=== PATIENT | female | born 1995 | race American Indian/Alaskan Native ===

== ENCOUNTER 2021-07-24 15:58 | Emergency (ER) | payer MEDICAID ==
[2021-07-24 16:40] LABS: Bilirubin,Urine NEG (Negative); Blood,Urine LG (Negative); Color,Urine Yellow (Yellow); Mucus,Urine 3+ /HPF; Protein,Urine <15 mg/dL mg/dL (Negative)
[2021-07-24 16:41] LABS: HCG Qualitative,Urine Positive (Negative)
[2021-07-24 16:52] LABS: Basophils # (Auto) 0.1 K/mm3 (0.0-0.1); Basophils % (Auto) 1.2 % (0.0-1.8); Eosinophils # (Auto) 0.1 K/mm3 (0.0-0.4); Eosinophils % (Auto) 1.7 % (0.0-4.3); Hematocrit 37.2 % (30.3-42.9); Hemoglobin 12.5 gm/dl (10.1-14.3); Lymphocytes # (Auto) 2.6 K/mm3 (1.2-5.4); Lymphocytes % (Auto) 47.5 % (13.4-35.0); Mean Corpuscular HGB Conc 34 % (30-34); Mean Corpuscular Volume 97 fl (79-97); Monocytes # (Auto) 0.5 K/mm3 (0.0-0.8); Monocytes % (Auto) 8.9 % (0.0-7.3); Platelet Count 316 K/mm3 (140-440); Red Blood Count 3.82 M/mm3 (3.65-5.03); Red Cell Distribution Width 14.2 % (13.2-15.2)
[2021-07-24 17:02] LABS: INR 0.88 (0.87-1.13)
[2021-07-24 17:03] LABS: Partial Thromboplastin Time 26.4 Sec. (24.2-36.6)
--- NOTE | 2021-07-24 17:32 | Emergency Department Report ---
ED HPI - General Chief complaint: Vaginal Bleeding Stated complaint: 5 WKS BLEEDING Time Seen by Provider: 07/24/21 16:30 Source: patient Mode of arrival: Ambulatory Limitations: No Limitations - History of Present Illness Initial comments: This is a 25-year-old female nontoxic, well nourished in appearance, no acute signs of distress presents to the ED with c/o of vaginal bleeding x4 days. Patient stated yesterday she noticed some bleeding 4 days ago and now is just stopping. Patient denies any abdominal or pelvic pain. Patient denies any vaginal discharge or foul odor. Patient denies any nausea, vomiting, chest pain, shortness of breathe, fever, chills, headache, stiff neck, numbness, tingling. Patient denies any urinary symptoms. Patient denies any allergies or PMH. Stated is about 5 weeks . MD Complaint: vaginal bleeding -: days(s) Severity scale (0 -10): 0 Improves with: none Worsens with: none Associated symptoms: vaginal bleeding. denies: nausea/vomiting, vaginal discharge, abdominal pain, dysuria, headache, vision changes, malaise, dysparuenia, rash, seizure, shortness of breath, syncope, weakness Vaginal bleeding: light :: Yes Pre-adriane care: followed by OB - Related Data Allergies Allergy/AdvReac Type Severity Reaction Status Date / Time flu Allergy Swelling Uncoded 07/24/21 16:11 ED Review of Systems ROS: Stated complaint: 5 WKS BLEEDING Other details as noted in HPI Comment: All other systems reviewed and negative Constitutional: denies: chills, fever Eyes: denies: eye pain, eye discharge, vision change ENT: denies: ear pain, throat pain Respiratory: denies: cough, shortness of breath, wheezing Cardiovascular: denies: chest pain, palpitations Endocrine: no symptoms reported Gastrointestinal: denies: abdominal pain, nausea, diarrhea Genitourinary: abnormal menses. denies: urgency, dysuria, frequency, hematuria, discharge, dyspareunia Musculoskeletal: denies: back pain, joint swelling, arthralgia Skin: denies: rash, lesions Neurological: denies: headache, weakness, paresthesias Psychiatric: denies: anxiety, depression Hematological/Lymphatic: denies: easy bleeding, easy bruising ED Physical Exam - General Limitations: No Limitations General appearance: alert, in no apparent distress - Head Head exam: Present: atraumatic, normocephalic - Eye Eye exam: Present: normal appearance - Neck Neck exam: Present: normal inspection, full ROM. Absent: lymphadenopathy - Respiratory Respiratory exam: Present: normal lung sounds bilaterally. Absent: respiratory distress, wheezes, rales, rhonchi, stridor, chest wall tenderness, accessory muscle use, decreased breath sounds, prolonged expiratory - Cardiovascular Cardiovascular Exam: Present: regular rate, normal rhythm, normal heart sounds. Absent: bradycardia, tachycardia, irregular rhythm, systolic murmur, diastolic murmur, rubs, gallop - GI/Abdominal GI/Abdominal exam: Present: soft, normal bowel sounds. Absent: distended, tenderness, guarding, rebound, rigid, diminished bowel sounds - Extremities Exam Extremities exam: Present: full ROM - Back Exam Back exam: Present: normal inspection, full ROM. Absent: tenderness, CVA tender ness (R), CVA tenderness (L), muscle spasm, paraspinal tenderness, vertebral tenderness, rash noted - Neurological Exam Neurological exam: Present: alert, oriented X3, normal gait - Psychiatric Psychiatric exam: Present: normal affect, normal mood - Skin Skin exam: Present: warm, dry, intact, normal color. Absent: rash ED Course Vital Signs 07/24/21 16:14 Temperature 98.2 F Pulse Rate 80 Respiratory 18 Rate Blood Pressure 138/80 [Right] O2 Sat by Pulse 100 Oximetry - Reevaluation(s) Reevaluation #1: 07/24/21 17:39 Patient is speaking in full sentences with no signs of distress noted. ED Medical Decision Making - Lab Data Result diagrams: 07/24/21 16:38 Lab Results 07/24/21 07/24/21 07/24/21 Range/Units 16:26 16:38 16:38 WBC 5.5 (4.5-11.0) K/mm3 RBC 3.82 (3.65-5.03) M/mm3 Hgb 12.5 (10.1-14.3) gm/dl Hct 37.2 (30.3-42.9) % MCV 97 (79-97) fl MCH 33 H (28-32) pg MCHC 34 (30-34) % RDW 14.2 (13.2-15.2) % Plt Count 316 (140-440) K/mm3 Lymph % (Auto) 47.5 H (13.4-35.0) % Posey % (Auto) 8.9 H (0.0-7.3) % Eos % (Auto) 1.7 (0.0-4.3) % Baso % (Auto) 1.2 (0.0-1.8) % Lymph # (Auto) 2.6 (1.2-5.4) K/mm3 Posey # (Auto) 0.5 (0.0-0.8) K/mm3 Eos # (Auto) 0.1 (0.0-0.4) K/mm3 Baso # (Auto) 0.1 (0.0-0.1) K/mm3 Seg Neutrophils % 40.7 (40.0-70.0) % Seg Neutrophils # 2.2 (1.8-7.7) K/mm3 PT 12.9 (12.2-14.9) Sec. INR 0.88 (0.87-1.13) APTT 26.4 (24.2-36.6) Sec. HCG, Quant (0-4) mIU/mL Urine Color Yellow (Yellow) Urine Turbidity Clear (Clear) Urine pH 6.0 (5.0-7.0) Ur Specific Surprise 1.023 (1.003-1.030) Urine Protein <15 mg/dl (Negative) mg/dL Urine Glucose (UA) Neg (Negative) mg/dL Urine Ketones Neg (Negative) mg/dL Urine Blood Lg (Negative) Urine Nitrite Neg (Negative) Urine Bilirubin Neg (Negative) Urine Urobilinogen 4.0 (<2.0) mg/dL Ur Leukocyte Esterase Neg (Negative) Urine WBC (Auto) 1.0 (0.0-6.0) /HPF Urine RBC (Auto) 8.0 (0.0-6.0) /HPF U Epithel Cells (Auto) 11.0 (0-13.0) /HPF Urine Mucus 3+ /HPF Urine HCG, Qual Positive A (Negative) Blood Type 07/24/21 07/24/21 Range/Units 16:38 16:38 WBC (4.5-11.0) K/mm3 RBC (3.65-5.03) M/mm3 Hgb (10.1-14.3) gm/dl Hct (30.3-42.9) % MCV (79-97) fl MCH (28-32) pg MCHC (30-34) % RDW (13.2-15.2) % Plt Count (140-440) K/mm3 Lymph % (Auto) (13.4-35.0) % Posey % (Auto) (0.0-7.3) % Eos % (Auto) (0.0-4.3) % Baso % (Auto) (0.0-1.8) % Lymph # (Auto) (1.2-5.4) K/mm3 Posey # (Auto) (0.0-0.8) K/mm3 Eos # (Auto) (0.0-0.4) K/mm3 Baso # (Auto) (0.0-0.1) K/mm3 Seg Neutrophils % (40.0-70.0) % Seg Neutrophils # (1.8-7.7) K/mm3 PT (12.2-14.9) Sec. INR (0.87-1.13) APTT (24.2-36.6) Sec. HCG, Quant 16.77 H (0-4) mIU/mL Urine Color (Yellow) Urine Turbidity (Clear) Urine pH (5.0-7.0) Ur Specific Surprise (1.003-1.030) Urine Protein (Negative) mg/dL Urine Glucose (UA) (Negative) mg/dL Urine Ketones (Negative) mg/dL Urine Blood (Negative) Urine Nitrite (Negative) Urine Bilirubin (Negative) Urine Urobilinogen (<2.0) mg/dL Ur Leukocyte Esterase (Negative) Urine WBC (Auto) (0.0-6.0) /HPF Urine RBC (Auto) (0.0-6.0) /HPF U Epithel Cells (Auto) (0-13.0) /HPF Urine Mucus /HPF Urine HCG, Qual (Negative) Blood Type O POSITIVE - Radiology Data [facility] [address] [place] [address] Ultrasound Report Signed Patient: FEMI BOYER MR#: [id number] : 1995 Acct:[id number] Age/Sex: 25 / F ADM Date: 07/24/21 Loc: ED Attending Dr: Ordering Physician: KEVIN PALOMINO NP Date of Service: 07/24/21 Procedure(s): US OB <= 14 weeks fetus Accession Number(s): [id number] cc: KEVIN PALOMINO NP ULTRASOUND OBSTETRIC INDICATION / CLINICAL INFORMATION: vaginal bleeding. Beta hCG unknown. Last menstrual period 06/16/2021 Clinical Gestational Age (GA) in weeks, days: 5 weeks 3 days TECHNIQUE: Transabdominal and Transvaginal. COMPARISON: None available. FINDINGS: The uterus measures 7.5 x 3.8 x 5.4 cm. The endometrial echo complex measures 3 mm. No intrauterine gestational sac identified. ADNEXA: Right ovary measures 3.0 x 1.5 x 2.7 cm with multiple physiologic follicles. The left ovary measures 2.3 x 1.6 x 2.47 cm with multiple physiologic follicles. FREE FLUID: None. ADDITIONAL FINDINGS: None. IMPRESSION: 1. of unknown location. No intrauterine gestational sac identified. This can be seen with early . Recommend serial beta hCG and follow-up ultrasound. Signer Name: Tony Oliveros MD Signed: 07/24/2021 6:27 PM Workstation Name: [id number] Transcribed By: DB Dictated By: TONY OLIVEROS MD Electronically Authenticated By: TONY OLIVEROS MD Signed Date/Time: 07/24/211826 DD/ 22 TD/TT: [facility] [address] [place] [address] Ultrasound Report Signed Patient: FEMI BOYER MR#: [id number] : 1995 Acct:[id number] Age/Sex: 25 / F ADM Date: 07/24/21 Loc: ED Attending Dr: Ordering Physician: KEVIN PALOMINO NP Date of Service: 07/24/21 Procedure(s): US OB transvaginal Accession Number(s): [id number] cc: KEVIN PALOMINO NP ULTRASOUND OBSTETRIC INDICATION / CLINICAL INFORMATION: vaginal bleeding. Beta hCG unknown. Last menstrual period 06/16/2021 Clinical Gestational Age (GA) in weeks, days: 5 weeks 3 days TECHNIQUE: Transabdominal and Transvaginal. COMPARISON: None available. FINDINGS: The uterus measures 7.5 x 3.8 x 5.4 cm. The endometrial echo complex measures 3 mm. No intrauterine gestational sac identified. ADNEXA: Right ovary measures 3.0 x 1.5 x 2.7 cm with multiple physiologic follicles. The left ovary measures 2.3 x 1.6 x 2.47 cm with multiple physiologic follicles. FREE FLUID: None. ADDITIONAL FINDINGS: None. IMPRESSION: 1. of unknown location. No intrauterine gestational sac identified. This can be seen with early . Recommend serial beta hCG and follow-up ultrasound. Signer Name: Tony Oliveros MD Signed: 07/24/2021 6:27 PM Workstation Name: [id number] Transcribed By: DB Dictated By: TONY OLIVEROS MD Electronically Authenticated By: TONY OLIVEROS MD Signed Date/Time: 07/24/211826 DD/ 22 TD/TT: - Medical Decision Making This is a 25-year-old female presents with threatened miscarriage. Patient is stable and was examined by me. Normal abdominal exam. US OB obtained and dictated by the radiologist. Ua obtained. Quantative serum test obtained. Patient notified of the US report with no questions noted by the patient. Patient was instructed f/u with [facility] in 2 days. RH factor positive. Labs within normal limits. Patient was given strict precautions and education on ectopic . At time of discharge, the patient does not seem toxic or ill in appearance. No acute signs of distress noted. Patient agrees to discharge treatment plan of care. No further questions noted by the patient. Critical care attestation.: If time is entered above; I have spent that time in minutes in the direct care of this critically ill patient, excluding procedure time. ED Disposition Clinical Impression: Threatened miscarriage Disposition: 01 HOME / SELF CARE / HOMELESS Is pt being admited?: No Does the pt Need Aspirin: No Condition: Stable Instructions: Threatened Miscarriage Additional Instructions: Follow-up with a OBGYN doctor in 2 days or if symptoms worsen and continue return to emergency room as soon as possible. Referrals: [facility] [Referring] - 3-5 Days [facility] [Provider Group] - 07/26/21 [facility] [Provider Group] - 07/26/21 Time of Disposition: 19:15
--- NOTE | 2021-07-24 18:32 | Ultrasound Report ---
ULTRASOUND OBSTETRIC INDICATION / CLINICAL INFORMATION: vaginal bleeding. Beta hCG unknown. Last menstrual period 06/16/2021 Clinical Gestational Age (GA) in weeks, days: 5 weeks 3 days TECHNIQUE: Transabdominal and Transvaginal. COMPARISON: None available. FINDINGS: The uterus measures 7.5 x 3.8 x 5.4 cm. The endometrial echo complex measures 3 mm. No intrauterine g estational sac identified. ADNEXA: Right ovary measures 3.0 x 1.5 x 2.7 cm with multiple physiologic follicles. The left ovary m easures 2.3 x 1.6 x 2.47 cm with multiple physiologic follicles. FREE FLUID: None. ADDITIONAL FINDINGS: None. IMPRESSION: 1. of unknown location. No intrauterine gestational sac identified. This can be seen with e damian . Recommend serial beta hCG and follow-up ultrasound. Signer Name: Tony Oliveros MD Signed: 07/24/2021 6:27 PM Workstation Name: [id number]
[2021-07-24 19:37] VITALS: BP 112/71
== END 2021-07-24 19:53 | disposition home or self-care (01) ==
LOC: ED 15:58
DX: O20.0 Threatened abortion (principal); Z3A.01 Less than 8 weeks gestation of pregnancy
CPT/HCPCS: 36415; 76801; 76817; 81001; 81025; 84702; 85025; 85610; 85730; 86900; 86901; 99284